=== PATIENT | male | born 1955 | race Caucasian/White ===

== ENCOUNTER 2023-03-20 17:55 | Inpatient (IN) | payer OTHER, MEDICAID ==
[~2023-03-20] VITALS: Ht 172.7 cm; Wt 63.5 kg
[2023-03-20 18:15] VITALS: BP_SYST 112; PULSE 144; RESP 19; TEMP 98.2; O2SAT 100
[2023-03-20 19:01] LABS: BILIRUBIN,URINE NEGATIVE (NEGATIVE); BLOOD, URINE NEGATIVE (NEGATIVE); COLOR,URINE YELLOW (YELLOW); GLUCOSE,URINE NEGATIVE (NEGATIVE); KETONES,URINE 1+ (NEGATIVE); LEUKOCYTE ESTERASE ,URINE NEGATIVE (NEGATIVE); NITRITE, URINE NEGATIVE (NEGATIVE); PROTEIN URINE TRACE (NEGATIVE); UROBILINOGEN,URINE 0.2 (0.2-1.0)
[2023-03-20 19:28] LABS: BASOPHILS % (AUTO) 0.3 % (0.0-2.0); HEMOGLOBIN 10.2 g/dL (14.0-18.0); LYMPHOCYTES # (AUTO) 1.7 K/uL (1.0-5.5); LYMPHOCYTES % (AUTO) 16.4 % (20.5-51.5); MEAN CORPUSCULAR HEMOGLOBIN 27 pg (27-31); MEAN CORPUSCULAR HGB CONC 33 % (32-36); MEAN CORPUSCULAR VOLUME 82 fL (79.0-98.0); MONOCYTES # (AUTO) 0.3 K/uL (0.0-1.0); MONOCYTES % (AUTO) 2.7 % (1.7-9.3); NEUTROPHILS # (AUTO) 8.5 K/uL (1.8-7.7); NEUTROPHILS % (AUTO) 80.6 % (40.0-70.0); PLATELET COUNT (AUTO) 266 K/uL (130-430); RED BLOOD CELL COUNT(AUTO) 3.78 MIL/uL (4.2-6.2); RED CELL DISTRIBUTION WIDTH 16.9 % (9.0-15.0); WHITE BLOOD COUNT (AUTO) 10.6 K/uL (4.8-10.8)
[2023-03-20 19:35] LABS: CLARITY/URINE SLIGHTLY HAZY (CLEAR)
[2023-03-20 19:39] LABS: CALCIUM 9.1 mg/dL (8.4-11.0); CREATININE 0.99 mg/dL (0.55-1.30); POTASSIUM 4.9 mmol/L (3.5-5.1)
[2023-03-20 19:43] LABS: ALBUMIN 2.6 g/dL (3.4-4.8); BILIRUBIN,DIRECT 0.3 mg/dL (0.0-0.3); TOTAL BILIRUBIN 0.6 mg/dL (0.0-1.0)
[2023-03-20 19:44] LABS: INR 1.2 (0.80-1.20); PROTHROMBIN TIME 11.9 SECS (9.5-12.5)
[2023-03-20 20:05] LABS: RBC,URINE NONE SEEN /HPF (0-3); WBC,URINE 0-3 /HPF (0-3)
[2023-03-20 20:06] LABS: BACTERIA,URINE FEW /HPF (None Seen); FINE GRANULAR CASTS,URINE 0-10 /LPF (None Seen); MUCUS,URINE None Seen /LPF (None Seen)
[2023-03-20] MEDS: MORPHINE 2 MG/ML INJ. SYRINGE IVP ONE (21:30)
[2023-03-20] MEDS ORDERED: ATOR10TA68 PO (23:16)
[2023-03-20] MEDS ORDERED: LISI10TA29 PO (23:16)
[2023-03-20] MEDS ORDERED: METF-379 PO (23:16)
[2023-03-20] MEDS ORDERED: METH40TA14 PO (23:16)
[2023-03-20] MEDS ORDERED: NALOXONE HCL 0.4 MG/ML AMP (NARCAN) IVP PRN (23:45)
[2023-03-20] MEDS: PANTOPRAZOLE SODIUM 40 MG/VIAL (PROTONIX) IVP SCH (23:50)
[2023-03-20] MEDS: MORPHINE 4 MG INJ. 4 MG/ML VIAL IVP ONE (23:52)
[2023-03-20] MEDS: NACL 0.9% 1,000 ML IV SCH (23:55)
[2023-03-21] MEDS ORDERED: ONDANSETRON HCL 4 MG/2 ML VIAL IVP PRN (01:45)
[2023-03-21] MEDS ORDERED: NALOXONE HCL 0.4 MG/ML AMP (NARCAN) IVP PRN (01:45)
[2023-03-21] MEDS ORDERED: ACETAMINOPHEN 325 MG TABLET PO PRN (01:45)
[2023-03-21] MEDS ORDERED: MORPHINE 2 MG/ML INJ. SYRINGE IVP PRN (01:45)
[2023-03-21] MEDS: HYDROcodone/ACETAMIN 10-325 MG TAB PO PRN (02:37)
[2023-03-21] MEDS: LISINOPRIL 10 MG TABLET (PRINIVIL) PO SCH (02:38)
[2023-03-21 08:01] LABS: BASOPHILS % (AUTO) 0.3 % (0.0-2.0); EOSINOPHILS % (AUTO) 0.1 % (0.0-4.0); HEMATOCRIT 23.7 % (36-54); HEMOGLOBIN 7.8 g/dL (14.0-18.0); LYMPHOCYTES % (AUTO) 29.6 % (20.5-51.5); MEAN CORPUSCULAR HEMOGLOBIN 27 pg (27-31); MEAN CORPUSCULAR HGB CONC 33 % (32-36); MEAN CORPUSCULAR VOLUME 81 fL (79.0-98.0); MONOCYTES # (AUTO) 0.4 K/uL (0.0-1.0); MONOCYTES % (AUTO) 5.5 % (1.7-9.3); NEUTROPHILS # (AUTO) 4.3 K/uL (1.8-7.7); NEUTROPHILS % (AUTO) 64.5 % (40.0-70.0); PLATELET COUNT (AUTO) 189 K/uL (130-430); RED BLOOD CELL COUNT(AUTO) 2.92 MIL/uL (4.2-6.2); RED CELL DISTRIBUTION WIDTH 16.9 % (9.0-15.0); WHITE BLOOD COUNT (AUTO) 6.7 K/uL (4.8-10.8)
[2023-03-21 08:27] LABS: ALBUMIN 2.3 g/dL (3.4-4.8); CALCIUM 8.5 mg/dL (8.4-11.0); CREATININE 0.81 mg/dL (0.55-1.30); POTASSIUM 4.7 mmol/L (3.5-5.1); TOTAL BILIRUBIN 0.6 mg/dL (0.0-1.0); TOTAL PROTEIN, SERUM 6.9 g/dL (6.4-8.3)
[2023-03-21] MEDS: ATORVASTATIN 10 MG TABLET PO SCH (10:23)
[2023-03-21] MEDS ORDERED: MORPHINE 2 MG/ML INJ. SYRINGE ONE (11:18)
[2023-03-21] MEDS: HYDROcodone/ACETAMIN 5-325 MG TAB (NORCO/ VICODIN) PO PRN (11:23)
[2023-03-21] MEDS ORDERED: HYDROcodone/ACETAMIN 5-325 MG TAB (NORCO/ VICODIN) ONE ×2 (11:24→16:32)
[2023-03-21 15:18] LABS: BARBITURATE, URINE NEGATIVE (NEG <=200); BENZODIAZEPINE, URINE NEGATIVE (NEG <=150); CANNABINOID, URINE NEGATIVE (NEG <=50); COCAINE, URINE NEGATIVE (NEG <=150); METHAMPHETAMINES SCREEN,URINE NEGATIVE (NEG <=500); OPIATE, URINE NEGATIVE (NEG <=100); PHENCYCLIDINE SCREEN,URINE NEGATIVE (NEG <=25); UR TRICYCLIC ANTIDEPRESSANTS NEGATIVE (NEG <=300); URINE AMPHETAMINE NEGATIVE (NEG <=500); URINE METHADONE POSITIVE (NEG <=200); URINE OXYCODONE SCREEN NEGATIVE (NEG <=100)
[2023-03-21 19:05] LABS: BASOPHILS % (AUTO) 0.5 % (0.0-2.0); EOSINOPHILS % (AUTO) 0.5 % (0.0-4.0); HEMATOCRIT 22.9 % (36-54); HEMOGLOBIN 7.6 g/dL (14.0-18.0); LYMPHOCYTES # (AUTO) 1.6 K/uL (1.0-5.5); LYMPHOCYTES % (AUTO) 28.8 % (20.5-51.5); MEAN CORPUSCULAR HEMOGLOBIN 27 pg (27-31); MEAN CORPUSCULAR HGB CONC 33 % (32-36); MEAN CORPUSCULAR VOLUME 82 fL (79.0-98.0); MONOCYTES # (AUTO) 0.3 K/uL (0.0-1.0); MONOCYTES % (AUTO) 6.1 % (1.7-9.3); NEUTROPHILS # (AUTO) 3.5 K/uL (1.8-7.7); NEUTROPHILS % (AUTO) 64.1 % (40.0-70.0); PLATELET COUNT (AUTO) 166 K/uL (130-430); RED CELL DISTRIBUTION WIDTH 16.9 % (9.0-15.0); WHITE BLOOD COUNT (AUTO) 5.4 K/uL (4.8-10.8)
[2023-03-21 19:10] VITALS: BP_SYST 128; PULSE 107; RESP 19; TEMP 97.5; O2SAT 98
[2023-03-21 20:55] VITALS: BP_SYST 123; PULSE 101; RESP 20; TEMP 97.9; O2SAT 98
[2023-03-21] MEDS: MEPERIDINE 100 MG INJ. 100 MG/ML VIAL ONE (23:11)
[2023-03-21] MEDS: DIPHENHYDRAMINE INJ 50 MG/ML VIAL ONE (23:12)
[2023-03-21] MEDS: MIDAZOLAM HCL 5 MG/5 ML VIAL ONE (23:12)
[2023-03-21] MEDS: NACL 0.9% 1,000 ML IV SCH (23:25)
[2023-03-21] MEDS: ZOLPIDEM TARTRATE 5 MG TABLET PO PRN (23:25)
[2023-03-22] VITALS (7 sets, daily range): BP systolic 117–154; PULSE 78–119; RESP 18–20; TEMP 97.7–98.7; O2SAT 96–99
[2023-03-22 05:34] LABS: ALBUMIN 2.1 g/dL (3.4-4.8); CALCIUM 8.3 mg/dL (8.4-11.0); CREATININE 0.74 mg/dL (0.55-1.30); POTASSIUM 3.7 mmol/L (3.5-5.1); TOTAL BILIRUBIN 0.5 mg/dL (0.0-1.0); TOTAL PROTEIN, SERUM 6.5 g/dL (6.4-8.3)
[2023-03-22 06:39] LABS: BASOPHILS % (AUTO) 0.1 % (0.0-2.0); EOSINOPHILS % (AUTO) 1.2 % (0.0-4.0); LYMPHOCYTES # (AUTO) 1.2 K/uL (1.0-5.5); LYMPHOCYTES % (AUTO) 30.8 % (20.5-51.5); MEAN CORPUSCULAR HEMOGLOBIN 27 pg (27-31); MEAN CORPUSCULAR HGB CONC 32 % (32-36); MEAN CORPUSCULAR VOLUME 82 fL (79.0-98.0); MONOCYTES # (AUTO) 0.3 K/uL (0.0-1.0); MONOCYTES % (AUTO) 6.7 % (1.7-9.3); NEUTROPHILS # (AUTO) 2.4 K/uL (1.8-7.7); NEUTROPHILS % (AUTO) 61.2 % (40.0-70.0); PLATELET COUNT (AUTO) 147 K/uL (130-430); RED BLOOD CELL COUNT(AUTO) 2.58 MIL/uL (4.2-6.2); WHITE BLOOD COUNT (AUTO) 3.8 K/uL (4.8-10.8)
[2023-03-22 08:32] LABS: HEMATOCRIT 21.2 % (36-54); HEMOGLOBIN 6.8 g/dL (14.0-18.0)
[2023-03-22] MEDS: DIPHENHYDRAMINE INJ 50 MG/ML VIAL IVP ONE (14:26)
[2023-03-22 15:07] LABS: HEPATITIS A AB, IgM Negative (Negative); HEPATITIS B CORE AB, IgM Negative (Negative); HEPATITIS B SURFACE AG Negative (Negative)
[2023-03-22] MEDS ORDERED: NALOXONE HCL 0.4 MG/ML AMP (NARCAN) IVP PRN (19:00)
[2023-03-22] MEDS: MORPHINE 2 MG/ML INJ. SYRINGE IVP PRN (20:34)
[2023-03-23] VITALS (7 sets, daily range): BP systolic 127–149; PULSE 98–102; RESP 16–18; TEMP 97.5–98.6; O2SAT 97–99
[2023-03-23] MEDS: HYDROcodone/ACETAMIN 5-325 MG TAB (NORCO/ VICODIN) PO PRN (00:09)
[2023-03-23 05:57] LABS: BASOPHILS % (AUTO) 0.3 % (0.0-2.0); EOSINOPHILS % (AUTO) 0.9 % (0.0-4.0); HEMATOCRIT 23.7 % (36-54); HEMOGLOBIN 7.7 g/dL (14.0-18.0); LYMPHOCYTES # (AUTO) 0.9 K/uL (1.0-5.5); LYMPHOCYTES % (AUTO) 26.4 % (20.5-51.5); MEAN CORPUSCULAR HEMOGLOBIN 27 pg (27-31); MEAN CORPUSCULAR HGB CONC 33 % (32-36); MEAN CORPUSCULAR VOLUME 83 fL (79.0-98.0); MONOCYTES # (AUTO) 0.2 K/uL (0.0-1.0); MONOCYTES % (AUTO) 6.1 % (1.7-9.3); NEUTROPHILS # (AUTO) 2.3 K/uL (1.8-7.7); NEUTROPHILS % (AUTO) 66.3 % (40.0-70.0); PLATELET COUNT (AUTO) 151 K/uL (130-430); RED BLOOD CELL COUNT(AUTO) 2.85 MIL/uL (4.2-6.2); RED CELL DISTRIBUTION WIDTH 16.7 % (9.0-15.0)
[2023-03-23 06:45] LABS: TOTAL IRON BIND. CAPACITY 315 ug/dL (250-450)
[2023-03-23 06:50] LABS: ALBUMIN 2.1 g/dL (3.4-4.8); CREATININE 0.57 mg/dL (0.55-1.30); POTASSIUM 3.5 mmol/L (3.5-5.1); TOTAL BILIRUBIN 0.6 mg/dL (0.0-1.0); TOTAL PROTEIN, SERUM 6.5 g/dL (6.4-8.3)
[2023-03-23 08:22] LABS: WHITE BLOOD COUNT (AUTO) 3.5 K/uL (4.8-10.8)
[2023-03-23 09:07] LABS: CEA 2.3 ng/mL (0.0-4.7)
[2023-03-23] MEDS ORDERED: LIDOCAINE 1%, 20 ML MDV 0 ML ONE ×2 (09:31→09:35)
[2023-03-23] MEDS ORDERED: LIDOCAINE 1%, 20 ML MDV 20 ML ONE (09:36)
[2023-03-23 10:39] LABS: RETICULOCYTE COUNT 3.3 % (0.5-1.5)
[2023-03-23] MEDS ORDERED: fentaNYL CITRATE/PF 100 MCG/2 ML AMP ONE (13:18)
[2023-03-23] MEDS ORDERED: MIDAZOLAM HCL 5 MG/5 ML VIAL ONE (13:18)
[2023-03-24] VITALS: BP_SYST 126; PULSE 102; RESP 18; TEMP 98.7; O2SAT 99
[2023-03-24 05:48] LABS: ALBUMIN 2.2 g/dL (3.4-4.8); CREATININE 0.65 mg/dL (0.55-1.30); POTASSIUM 3.8 mmol/L (3.5-5.1); TOTAL BILIRUBIN 0.5 mg/dL (0.0-1.0); TOTAL PROTEIN, SERUM 6.8 g/dL (6.4-8.3)
[2023-03-24 06:40] LABS: BASOPHILS % (AUTO) 0.4 % (0.0-2.0); EOSINOPHILS % (AUTO) 0.7 % (0.0-4.0); HEMATOCRIT 24.8 % (36-54); HEMOGLOBIN 8.2 g/dL (14.0-18.0); LYMPHOCYTES # (AUTO) 0.7 K/uL (1.0-5.5); LYMPHOCYTES % (AUTO) 18.8 % (20.5-51.5); MEAN CORPUSCULAR HEMOGLOBIN 28 pg (27-31); MEAN CORPUSCULAR HGB CONC 33 % (32-36); MEAN CORPUSCULAR VOLUME 84 fL (79.0-98.0); MONOCYTES # (AUTO) 0.3 K/uL (0.0-1.0); MONOCYTES % (AUTO) 6.4 % (1.7-9.3); NEUTROPHILS # (AUTO) 2.9 K/uL (1.8-7.7); NEUTROPHILS % (AUTO) 73.7 % (40.0-70.0); PLATELET COUNT (AUTO) 154 K/uL (130-430); RED BLOOD CELL COUNT(AUTO) 2.97 MIL/uL (4.2-6.2); RED CELL DISTRIBUTION WIDTH 16.7 % (9.0-15.0); WHITE BLOOD COUNT (AUTO) 3.9 K/uL (4.8-10.8)
[2023-03-24 08:22] VITALS: BP_SYST 139; PULSE 103; RESP 18; TEMP 96.9; O2SAT 97
[2023-03-24 10:23] VITALS: O2SAT 97
[2023-03-24] MEDS: METHADONE HCL 10 MG TABLET PO ONE (11:41)
[2023-03-24 12:09] VITALS: BP_SYST 145; PULSE 99; RESP 18; TEMP 97.5; O2SAT 99
[2023-03-24 16:34] VITALS: BP_SYST 142; PULSE 92; RESP 16; TEMP 97.5; O2SAT 100
[2023-03-24 16:45] VITALS: BP_SYST 141; PULSE 94; RESP 18; TEMP 97.3; O2SAT 100
[2023-03-24] MEDS ORDERED: DOCU250C71 PO (16:55)
[2023-03-24] MEDS ORDERED: PRO40 PO (16:55)
[2023-03-24] MEDS ORDERED: FERR236T3 PO (16:55)
[2023-03-24] MEDS ORDERED: HYDR-3921 PO (16:56)
[2023-03-25] MEDS ORDERED: METHADONE HCL 10 MG TABLET PO SCH (09:00)
[2023-03-25 18:06] LABS: HEPATITIS C VIRUS AB Reactive (Non Reactive)
== END 2023-03-24 17:45 | disposition home or self-care (01) | DRG 435 ==
LOC: SED 17:55 → STU 22:17
PROVIDERS: ADMIT Family Medicine; ATTEND Family Medicine
PROC: 02HV33Z Insertion of Infusion Device into Superior Vena Cava, Percutaneous Approach (ICD-10-PCS; principal; 2023-03-20)
PROC: B548ZZA Ultrasonography of Superior Vena Cava, Guidance (ICD-10-PCS; 2023-03-20)
PROC: 0DB78ZX Excision of Stomach, Pylorus, Via Natural or Artificial Opening Endoscopic, Diagnostic (ICD-10-PCS; 2023-03-21)
PROC: 30233N1 Transfusion of Nonautologous Red Blood Cells into Peripheral Vein, Percutaneous Approach (ICD-10-PCS; 2023-03-22)
PROC: 0FB03ZX Excision of Liver, Percutaneous Approach, Diagnostic (ICD-10-PCS; 2023-03-23)
DX: C22.0 Liver cell carcinoma (principal); E43 Unspecified severe protein-calorie malnutrition; D62 Acute posthemorrhagic anemia; K29.70 Gastritis, unspecified, without bleeding; K29.80 Duodenitis without bleeding; K21.9 Gastro-esophageal reflux disease without esophagitis; E78.5 Hyperlipidemia, unspecified; F11.10 Opioid abuse, uncomplicated; R74.01 Elevation of levels of liver transaminase levels; Z68.21 Body mass index [BMI] 21.0-21.9, adult; K20.90 Esophagitis, unspecified without bleeding
CPT/HCPCS: 36415; 43239; 71250-TC; 76376; 80048; 80053; 80074; 80076; 80307; 81000; 81001; 81015; 82105; 82150; 82272; 82378; 82948; 83037; 83540; 83550; 83605; 83690; 85025; 85044; 85610; 85730; 86301; 86886; 86900; 86901; 86920; 88305; 88307; 88312; 88313; 88341; 88342; 96361; 96374; 96376; 99291; C9113; G0378; J1200; J2001; J2175; J2250; J2270; J3010; P9021; Q9967